=== PATIENT | male | born 1950 | race Caucasian/White ===

== ENCOUNTER → 2020-05-12 | Outpatient (CLI) | payer MEDICARE ==
[~2020-05-12] MED LIST: AMLO10TA8 PO; FENTANYL PF 100 MCG/2ML ONE; HYDR-3237 PO; LISI1TAB20 PO; METO-290 PO; OMNIPAQUE 350 MG/ML, 100ML BOTTLE ONE; TERA10CA3 PO; hydrALAzine 20 MG/ML, 1ML ONE
[2020-05-12 14:47] LABS: CREATININE 1.03 mg/dL (0.7-1.3)
== END | disposition home or self-care (01) ==
LOC: RAD 14:10
PROVIDERS: ATTEND Family Medicine
DX: K57.30 Diverticulosis of large intestine without perforation or abscess without bleeding (principal); N13.2 Hydronephrosis with renal and ureteral calculous obstruction; M51.35 Other intervertebral disc degeneration, thoracolumbar region
CPT/HCPCS: 36415; 74177; 82565; Q9967